=== PATIENT | male | born 1990 ===

== ENCOUNTER 2017-09-23 01:24 | Emergency (ER) | payer BC, OTHER ==
[~2017-09-23 01:24] MED LIST: Maxipime 2 GM** 2 G in Sodium Chloride 0.9% 100 ML IVPB 100 ML IV ONE
[2017-09-23] MEDS ORDERED: MAXIPIME IV STA (01:47)
[2017-09-23] MEDS ORDERED: SODIUM CHLORIDE 0.9% IV STA (01:47)
[2017-09-23] MEDS ORDERED: DUONEB 0.5-3 MG/3 ml Neb IH ONE ×2 (01:54→02:01)
[2017-09-23] MEDS ORDERED: solu-MEDROL 125 MG IV ONE (01:55)
[2017-09-23 02:00] LABS: Granulocyte Absolute (ANC) 8.18 (1.4-6.9); Hematocrit 42.8 % (42-50); Hemoglobin 14.6 gm/dl (12.5-18.0); Mean Cell Volume 87.5 fl (78-100); Mean Corpuscular Hemoglobin 29.9 pg (26-32); Mean Corpuscular Hgb Concent. 34.1 g/dl (32-36); Mean Platelet Volume 10.4 fl (6-9.5); Platelet Count 278 K/mm3 (150-450); Red Blood Count 4.89 M/mm3 (4.1-5.6); Red Cell Distribution Width 12.9 % (11.5-14.0)
[2017-09-23] MEDS ORDERED: solu-MEDROL 125 MG ONE (02:02)
[2017-09-23] MEDS ORDERED: Sodium Chloride 0.9% 1000 ML 0 ML ONE (02:02)
[2017-09-23] MEDS: Sodium Chloride 0.9% 1000 ML 1,000 ML IV SCH ×2 (02:05→02:54)
--- NOTE | 2017-09-23 02:05 | ERPHSYRPT ---
- History of Present Illness Time Seen by Provider: 09/23/17 01:47 Source: patient Exam Limitations: clinical condition Patient Subjective Stated Complaint: pt states he has been coughing and has been short of breath tonight. Triage Nursing Assessment: pt alert and oriented, asnwers questions approp. pt ambulatory with steady gait noted. pt short of breath with exertion. exp wheeze noted in rt upper and middle lobe. lt clear. occasional hacking cough ntoed. Physician History: PATIENT COMPLAINS OF A PRODUCTIVE COUGH BROWN SPUTUM X 2 DAYS ASSOCIATED WITH DIFFICULTY BREATHING, HAS ASSOCIATED PAIN UPON INSPIRATION. DENIES FEVER OR CHILLS. Timing/Duration: yesterday Cough Quality/Degree: severe, productive cough, sputum Possible Cause: occasional episodes Modifying Factors: Improves With: coughing Associated Symptoms: other (CHEST PAIN UPON INSPIRATION) Allergies/Adverse Reactions: No Known Drug Allergies Allergy (Verified 09/23/17 01:41) Hx Tetanus, Diphtheria Vaccination/Date Given: Yes Hx Influenza Vaccination/Date Given: No Hx Pneumococcal Vaccination/Date Given: No Immunizations Up to Date: Yes - Review of Systems Constitutional: No Fever, No Chills Eyes: No Symptoms Ears, Nose, & Throat: No Symptoms Respiratory: Cough, No Dyspnea Cardiac: No Symptoms, No Chest Pain, No Edema, No Syncope Abdominal/Gastrointestinal: No Symptoms, No Abdominal Pain, No Nausea, No Vomiting, No Diarrhea Genitourinary Symptoms: No Symptoms, No Dysuria Musculoskeletal: No Back Pain, No Neck Pain Skin: No Rash Neurological: No Symptoms, No Dizziness, No Focal Weakness, No Sensory Changes Psychological: No Symptoms Endocrine: No Symptoms All Other Systems: Reviewed and Negative - Past Medical History Pertinent Past Medical History: No - Past Surgical History Past Surgical History: Yes - Social History Smoking Status: Never smoker Exposure to second hand smoke: No Drug Use: none Patient Lives Alone: No - Nursing Vital Signs Nursing Vital Signs: Initial Vital Signs Temperature 99.1 F 09/23/17 01:30 Pulse Rate 110 H 09/23/17 01:30 Respiratory Rate 22 09/23/17 01:30 Blood Pressure 134/76 09/23/17 01:30 O2 Sat by Pulse Oximetry 93 L 09/23/17 01:30 Pain Scale Pain Intensity 3 - Physical Exam General Appearance: no apparent distress, alert Eye Exam: PERRL/EOMI, eyes nml inspection Ears, Nose, Throat Exam: normal ENT inspection, TMs normal, pharynx normal, moist mucous membranes Neck Exam: normal inspection, non-tender, supple, full range of motion Respiratory Exam: normal breath sounds, lungs clear, wheezing (TERMINAL INSPIRATORY WHEEZES), No respiratory distress Cardiovascular Exam: regular rate/rhythm, normal heart sounds Gastrointestinal/Abdomen Exam: soft, normal bowel sounds, No tenderness Back Exam: normal inspection, No CVA tenderness, No vertebral tenderness Extremity Exam: normal inspection, normal range of motion Neurologic Exam: alert, oriented x 3, cooperative, normal mood/affect, sensation nml, No motor deficits Skin Exam: normal color, warm, dry, No rash Lymphatic Exam: No adenopathy SpO2 Interpretation: normal SpO2: 95 Oxygen Delivery: Room Air - Course EKG Interpreted by Me: Sinus Rhythm, Sinus Tach, NORMAL AXIS - Radiology Exams Chest X-ray Interpretation: Interpreted by me (LEFT INFRAHILAR INFILTRATES) Ordered Tests: Active Orders 24 hr Category Date Time Status Project Control Officer STAT Care 09/23/17 01:48 Active Clean Catch Urine Specimen STAT Care 09/23/17 01:47 Active EKG-ER Only STAT Care 09/23/17 01:47 Active IV Insertion STAT Care 09/23/17 01:47 Active Pulse Oximetry (ED) STAT Care 09/23/17 01:47 Active CHEST 2 VIEWS (PA AND LAT) Stat Exams 09/23/17 01:47 Taken CBC W DIFF Stat Lab 09/23/17 01:53 Completed CMP Stat Lab 09/23/17 01:53 Completed CULTURE, THROAT Stat Lab 09/23/17 01:58 Received CULTURE,URINE Stat Lab 09/23/17 01:48 Received Lactic Acid Stat Lab 09/23/17 01:47 Results Lactic Acid Stat Lab 09/23/17 03:43 Ordered Manual Differential NC Stat Lab 09/23/17 01:53 Completed PROTIME WITH INR Stat Lab 09/23/17 01:53 Completed STREP SCREEN-BETA A Stat Lab 09/23/17 01:58 Completed UA W/ MICROSCOPIC Stat Lab 09/23/17 02:40 Completed Respiratory Nebulizer STAT RT 09/23/17 01:54 Completed Medication Summary Generic Name Dose Route Start Last Admin Trade Name Freq PRN Reason Stop Dose Admin Sodium Chloride 1,000 mls @ 999 mls/hr 09/23/17 02:00 09/23/17 02:54 Sodium Chloride 0.9% 1000 Ml IV 09/23/17 06:00 999 mls/hr .Q1H1M ABHILASH Administration Sodium Chloride 1,000 mls @ 999 mls/hr 09/23/17 03:02 09/23/17 03:08 Sodium Chloride 0.9% 1000 Ml IV 09/23/17 04:02 Not Given .Q1H1M STA Discontinued Medications Generic Name Dose Route Start Last Admin Trade Name Jevon PRN Reason Stop Dose Admin Albuterol/Ipratropium 3 ml 09/23/17 01:54 09/23/17 02:12 Duoneb 0.5-3 Mg/3 Ml Neb IH 09/23/17 01:55 3 ml STAT ONE Administration Albuterol/Ipratropium Confirm 09/23/17 02:01 Duoneb 0.5-3 Mg/3 Ml Neb Administered 09/23/17 02:02 Dose 3 ml IH .STK-MED ONE Cefepime HCl 2 g/ Sodium 100 mls @ 200 mls/hr 09/23/17 01:47 09/23/17 02:22 Chloride IV 09/23/17 02:16 200 mls/hr STAT STA Administration Methylprednisolone Sodium Succinate 125 mg 09/23/17 01:55 09/23/17 02:05 Solu-Medrol 125 Mg IV 09/23/17 01:56 125 mg STAT ONE Administration Methylprednisolone Sodium Succinate Confirm 09/23/17 02:02 Solu-Medrol 125 Mg Administered 09/23/17 02:03 Dose 125 mg .ROUTE .STK-MED ONE Potassium Chloride Confirm 09/23/17 02:34 Klor Con 10 Meq Administered 09/23/17 02:35 Dose 40 meq PO .STK-MED ONE Potassium Chloride 40 meq 09/23/17 02:49 09/23/17 02:55 Klor Con 10 Meq PO 09/23/17 02:50 40 meq STAT ONE Administration Lab/Rad Data: Laboratory Result Diagrams 09/23/17 01:53 09/23/17 01:53 Laboratory Results 09/23/17 09/23/17 09/23/17 Range/Units 03:43 02:40 02:07 WBC (4.0-10.5) K/mm3 RBC (4.1-5.6) M/mm3 Hgb (12.5-18.0) gm/dl Hct (42-50) % MCV (78-100) fl MCH (26-32) pg MCHC (32-36) g/dl RDW (11.5-14.0) % Plt Count (150-450) K/mm3 MPV (6-9.5) fl Segmented Neutrophils (36.-66.) % Band Neutrophils (0.0-2.0) % Lymphocytes (Manual) (24-44) % Monocytes (Manual) (0.0-12.0) % Eosinophils (Manual) (0.00-3.0) % Differential Comment Atypical Lymphocytes % Platelet Estimate (NORMAL) INR (0.8-3.0) Sodium (136-145) mEq/L Potassium (3.5-5.1) mEq/L Chloride (98-107) mEq/L Carbon Dioxide (21-32) mEq/L Anion Gap (5-15) MEQ/L BUN (9-20) mg/dL Creatinine (0.55-1.30) mg/dl Estimated GFR ML/MIN Glucose (70-110) MG/DL Lactic Acid 0.8 (0.4-2.0) Calcium (8.5-10.1) mg/dL Total Bilirubin (0.2-1.0) mg/dL AST (15-37) U/L ALT (12-78) U/L Alkaline Phosphatase (46-116) U/L Serum Total Protein (6.4-8.2) gm/dL Albumin (3.4-5.0) g/dL Ur Collection Type VOID Urine Color DARK YELLOW (YELLOW) Urine Appearance CLEAR (CLEAR) Urine pH 6.0 (5-6) Ur Specific [place] 1.025 (1.005-1.025) Urine Protein TRACE (Negative) Urine Ketones NEGATIVE (NEGATIVE) Urine Blood TRACE NON-HEM (0-5) Latrell/ul Urine Nitrite NEGATIVE (NEGATIVE) Urine Bilirubin MODERATE (NEGATIVE) Urine Urobilinogen 8 (0-1) mg/dL Ur Leukocyte Esterase NEGATIVE (NEGATIVE) Urine Microscopic RBC 5-10 (0-2) /HPF Urine Microscopic WBC 2-5 (0-5) /HPF Ur Epithelial Cells RARE (FEW) /HPF Calcium Oxalate Crystal 0-2 (NEGATIVE) /HPF Urine Bacteria FEW (NEGATIVE) /HPF Urine Mucus MODERATE (NEGATIVE) /HPF Urine Glucose NEGATIVE (NEGATIVE) mg/dL Influenza Type A Ag NEGATIVE (NEGATIVE) Influenza Type B Ag NEGATIVE (NEGATIVE) RSV (PCR) NEGATIVE (Negative) Streptococcus Screen (Negative) Specimen Received 09/23/17 0240 09/23/17 09/23/17 09/23/17 Range/Units 01:58 01:53 01:53 WBC (4.0-10.5) K/mm3 RBC (4.1-5.6) M/mm3 Hgb (12.5-18.0) gm/dl Hct (42-50) % MCV (78-100) fl MCH (26-32) pg MCHC (32-36) g/dl RDW (11.5-14.0) % Plt Count (150-450) K/mm3 MPV (6-9.5) fl Segmented Neutrophils (36.-66.) % Band Neutrophils (0.0-2.0) % Lymphocytes (Manual) (24-44) % Monocytes (Manual) (0.0-12.0) % Eosinophils (Manual) (0.00-3.0) % Differential Comment Atypical Lymphocytes % Platelet Estimate (NORMAL) INR 1.20 (0.8-3.0) Sodium 140 (136-145) mEq/L Potassium 3.0 L* (3.5-5.1) mEq/L Chloride 103 (98-107) mEq/L Carbon Dioxide 25.6 (21-32) mEq/L Anion Gap 14.4 (5-15) MEQ/L BUN 9 (9-20) mg/dL Creatinine 0.97 (0.55-1.30) mg/dl Estimated GFR > 60 ML/MIN Glucose 113 H (70-110) MG/DL Lactic Acid (0.4-2.0) Calcium 8.6 (8.5-10.1) mg/dL Total Bilirubin 0.50 (0.2-1.0) mg/dL AST 17 (15-37) U/L ALT 49 (12-78) U/L Alkaline Phosphatase 69 (46-116) U/L Serum Total Protein 6.8 (6.4-8.2) gm/dL Albumin 3.6 (3.4-5.0) g/dL Ur Collection Type Urine Color (YELLOW) Urine Appearance (CLEAR) Urine pH (5-6) Ur Specific [place] (1.005-1.025) Urine Protein (Negative) Urine Ketones (NEGATIVE) Urine Blood (0-5) Latrell/ul Urine Nitrite (NEGATIVE) Urine Bilirubin (NEGATIVE) Urine Urobilinogen (0-1) mg/dL Ur Leukocyte Esterase (NEGATIVE) Urine Microscopic RBC (0-2) /HPF Urine Microscopic WBC (0-5) /HPF Ur Epithelial Cells (FEW) /HPF Calcium Oxalate Crystal (NEGATIVE) /HPF Urine Bacteria (NEGATIVE) /HPF Urine Mucus (NEGATIVE) /HPF Urine Glucose (NEGATIVE) mg/dL Influenza Type A Ag (NEGATIVE) Influenza Type B Ag (NEGATIVE) RSV (PCR) (Negative) Streptococcus Screen NEGATIVE (Negative) Specimen Received 09/23/17 09/23/17 Range/Units 01:53 01:47 WBC 12.0 H (4.0-10.5) K/mm3 RBC 4.89 (4.1-5.6) M/mm3 Hgb 14.6 (12.5-18.0) gm/dl Hct 42.8 (42-50) % MCV 87.5 (78-100) fl MCH 29.9 (26-32) pg MCHC 34.1 (32-36) g/dl RDW 12.9 (11.5-14.0) % Plt Count 278 (150-450) K/mm3 MPV 10.4 H (6-9.5) fl Segmented Neutrophils 66 (36.-66.) % Band Neutrophils 7 H (0.0-2.0) % Lymphocytes (Manual) 15 L (24-44) % Monocytes (Manual) 5 (0.0-12.0) % Eosinophils (Manual) 3 (0.00-3.0) % Differential Comment NORMAL Atypical Lymphocytes 4 % Platelet Estimate NORMAL (NORMAL) INR (0.8-3.0) Sodium (136-145) mEq/L Potassium (3.5-5.1) mEq/L Chloride (98-107) mEq/L Carbon Dioxide (21-32) mEq/L Anion Gap (5-15) MEQ/L BUN (9-20) mg/dL Creatinine (0.55-1.30) mg/dl Estimated GFR ML/MIN Glucose (70-110) MG/DL Lactic Acid 2.0 (0.4-2.0) Calcium (8.5-10.1) mg/dL Total Bilirubin (0.2-1.0) mg/dL AST (15-37) U/L ALT (12-78) U/L Alkaline Phosphatase (46-116) U/L Serum Total Protein (6.4-8.2) gm/dL Albumin (3.4-5.0) g/dL Ur Collection Type Urine Color (YELLOW) Urine Appearance (CLEAR) Urine pH (5-6) Ur Specific [place] (1.005-1.025) Urine Protein (Negative) Urine Ketones (NEGATIVE) Urine Blood (0-5) Latrell/ul Urine Nitrite (NEGATIVE) Urine Bilirubin (NEGATIVE) Urine Urobilinogen (0-1) mg/dL Ur Leukocyte Esterase (NEGATIVE) Urine Microscopic RBC (0-2) /HPF Urine Microscopic WBC (0-5) /HPF Ur Epithelial Cells (FEW) /HPF Calcium Oxalate Crystal (NEGATIVE) /HPF Urine Bacteria (NEGATIVE) /HPF Urine Mucus (NEGATIVE) /HPF Urine Glucose (NEGATIVE) mg/dL Influenza Type A Ag (NEGATIVE) Influenza Type B Ag (NEGATIVE) RSV (PCR) (Negative) Streptococcus Screen (Negative) Specimen Received - Progress Progress: improved Progress Note: 09/23/17 02:28 PLACED ONTO SEPSIS PROTOCOL, NORMAL SALINE 2 LITERS OVER 2 HOURS, SOLUMEDROL 125MG IV, MAXIPINE 2GM IVPB, TAKEN OF SESPIS PROTOCOL AFTER 2 LITERS NS, LACTATE -2 IMPROVED TO LACTATE 0.8 09/23/17 03:31 09/23/17 03:54 Blood Culture(s) Obtained: Yes Counseled pt/family regarding: lab results, diagnosis, need for follow-up, rad results - Departure Time of Disposition: 03:55 Departure Disposition: Home Clinical Impression: ACUTE BRONCHITIS WITH BRONCHIOSPASM Condition: Stable Critical Care Time: No Referrals: LIO WHITESIDE MD [Primary Care Provider] - Additional Instructions: TYLENOL OR MOTRIN FOR FEVER OR CHILLS NEEDED. ANTIBIOTIC OMNICEF 300MG TWICE DAILY FOR 10 DAYS. PREDNISONE 20MG, 2 TABLETS DAILY FOR 4 DAYS. VENTOLIN INHALER 2 PUFFS EVERY 4 HOURS NEEDED FOR BREATHING. TAKE OVER THE COUNTER COUGH SYRUP FOR COUGHING. CONSULT YOUR PRIMARY CARE PROVIDER FOR FOLLOWUP. Prescriptions: Albuterol 8 gm Mdi Hfa [Ventolin Hfa MDI] 18 gm IH Q4H PRN PRN #1 [email or web address] PRN Reason: DIFFICULTY BREATHING Cefdinir [Omnicef 300 mg] 300 mg PO BID #20 capsule Prednisone 20 mg [Deltasone 20 mg] 20 mg PO DAILY #8 tablet
[2017-09-23 02:14] LABS: INR 1.2 (0.8-3.0)
[2017-09-23 02:20] LABS: ALBUMIN 3.6 g/dL (3.4-5.0); ALKALINE PHOSPHATASE 69 U/L (46-116); ANION GAP 14.4 MEQ/L (5-15); BLOOD UREA NITROGEN 9 mg/dL (9-20); CHLORIDE 103 mEq/L (98-107); Calcium 8.6 mg/dL (8.5-10.1); Carbon Dioxide 25.6 mEq/L (21-32); Creatinine 1 0.97 mg/dl (0.55-1.30); EST GLOMERULAR FILTRATION RATE > 60 ML/MIN; Glucose 113 MG/DL (70-110); SGOT/AST 17 U/L (15-37); SGPT/ALT 49 U/L (12-78); SODIUM 140 mEq/L (136-145); Total Protein 6.8 gm/dL (6.4-8.2)
[2017-09-23] MEDS ORDERED: Sodium Chloride 0.9% 1000 ML 2,000 ML ONE (02:22)
[2017-09-23 02:30] LABS: ATYPICAL LYMPHS 4 %; BAND 7 % (0.0-2.0); Eosinophil 3 % (0.00-3.0); Lymphocytes 15 % (24-44); Monocyte 5 % (0.0-12.0); Neutrophils 66 % (36.-66.); Platelet Estimate NORMAL (NORMAL); Total Cells Counted 100
[2017-09-23] MEDS ORDERED: Klor Con 10 MEQ PO ONE ×2 (02:34→02:49)
[2017-09-23 02:52] LABS: Appearance CLEAR (CLEAR); Bilirubin MODERATE (NEGATIVE); Glucose NEGATIVE (NEGATIVE); Ketones NEGATIVE (NEGATIVE); Leukocyte Esterase NEGATIVE (NEGATIVE); Nitrite NEGATIVE (NEGATIVE); Protein,Urine Dip TRACE (Negative); Specific Gravity 1.025 (1.005-1.025); Urobilinogen 8 mg/dL (0-1)
[2017-09-23 02:53] LABS: Bacteria FEW /HPF (NEGATIVE); Blood TRACE NON-HEM Ery/ul (0-5); CALCIUM OXALATE CRYSTALS 0-2 /HPF (NEGATIVE); Epithelial Cells RARE /HPF (FEW); Mucus MODERATE /HPF (NEGATIVE)
[2017-09-23 02:58] VITALS: PULSE 104
[2017-09-23] MEDS ORDERED: Sodium Chloride 0.9% 1000 ML 1,000 ML IV STA (03:02)
[2017-09-23 03:15] LABS: INFLUENZA A NEGATIVE (NEGATIVE); INFLUENZA B NEGATIVE (NEGATIVE); RESPIRATORY SYNCTIAL VIRUS NEGATIVE (Negative)
[2017-09-23 03:53] VITALS: BP 108/65
[2017-09-23 03:55] VITALS: O2SAT 95
--- NOTE | 2017-09-23 09:19 | XRAY ---
Indication: Cough. Comparison: None PA/lateral chest demonstrates normal heart, lungs, and bony thorax with incidental hilar calcified nodes.
== END 2017-09-23 04:08 | disposition home or self-care (01) ==
LOC: ED 01:24
DX: J20.9 Acute bronchitis, unspecified (principal)
CPT/HCPCS: 36000; 36415; 71046; 80053; 81000; 83605; 85025; 85610; 87070; 87086; 87430; 87631; 93005; 93041; 94640; 96360; 96361; 96365; 96374; 99284; J0692; J2930; A9270-GY